=== PATIENT | female | born 1995 | race Two or more races ===

== ENCOUNTER → 2017-12-12 | Emergency (ER) | payer OTHER ==
[~2017-12-12] VITALS: Ht 152.4 cm; Wt 72.6 kg
[~2017-12-12] MED LIST: CEFDINIR300 MG PO; CELEBREX100 MG PO; MONTELUKAST SOD10 MG PO; NASONEX17 GM NASAL; Tussi-Organidin Dm-S PO; ZOLOFT100 MG PO; ZOLOFT25 MG
== END | disposition home or self-care (01) ==
LOC: ER 00:13
DX: F44.89 Other dissociative and conversion disorders (principal); G23.8 Other specified degenerative diseases of basal ganglia; Q90.9 Down syndrome, unspecified

== ENCOUNTER → 2017-12-26 | Emergency (ER) | payer OTHER ==
[~2017-12-26] VITALS: Ht 152.4 cm; Wt 72.6 kg
== END | disposition home or self-care (01) ==
LOC: ER 21:47
DX: R55 Syncope and collapse (principal)

== ENCOUNTER 2024-04-15 17:57 | Emergency (ER) | payer OTHER ==
[~2024-04-15] VITALS: Ht 157.5 cm; Wt 81.6 kg
[2024-04-15 20:28] LABS: HEMATOCRIT 36.9 % (36.0-45.00); HEMOGLOBIN 12.6 g/dL (12.0-15.00); MEAN CELL VOLUME 91.8 fL (80.00-100.00); MEAN CORPUSCULAR HEMOGLOBIN 31.4 pg (27.00-32.0); MEAN CORPUSCULAR HGB CONC 34.2 g/dl (32.0-36.0); PLATELET COUNT 154 K/uL (150-450); RED BLOOD COUNT 4.02 M/uL (4.00-6.00); RED CELL DISTRIBUTION WIDTH 13.9 % (11.5-14.5)
[2024-04-15] MEDS ORDERED: ACETAMINOPHEN 500 MG GEL..CAP PO ONE ×2 (20:45→20:48)
[2024-04-15] MEDS ORDERED: VITAMIN C500 M6 PO (22:17)
== END 2024-04-15 22:34 | disposition home or self-care (01) ==
LOC: ER 17:58
DX: B34.9 Viral infection, unspecified (principal); R50.9 Fever, unspecified; Z20.822 Contact with and (suspected) exposure to COVID-19; R53.81 Other malaise